=== PATIENT | female | born 1950 | race Caucasian/White ===

== ENCOUNTER 2016-07-06 08:42 | Outpatient (CLI) | payer MEDICARE, OTHER | END 2016-07-06 08:43 | disposition home or self-care (01) | DX: Z12.31 Encounter for screening mammogram for malignant neoplasm of breast (principal) ==

== ENCOUNTER 2016-10-05 10:44 | Outpatient (CLI) | payer MEDICARE, OTHER | END 2016-10-05 10:45 | disposition home or self-care (01) | DX: S92.315A Nondisplaced fracture of first metatarsal bone, left foot, initial encounter for closed fracture (principal); S99.922D Unspecified injury of left foot, subsequent encounter; M94.272 Chondromalacia, left ankle and joints of left foot ==

== ENCOUNTER 2017-07-27 08:58 | Outpatient (CLI) | payer MEDICARE, OTHER ==
--- NOTE | 2017-07-28 15:47 | Mammography Report ---
DIGITAL SCREENING MAMMOGRAM: 07/27/2017 CLINICAL INDICATION: A 66-year-old, for screening. COMPARISON: 06/2016, 06/2015,. 03/2012, 03/2011, 03/2010. TECHNIQUE: Routine CC and MLO projections were obtained of the breasts. FINDINGS: The breasts again demonstrate heterogeneously dense fibroglandular parenchyma bilaterally. Punctate, typically benign calcifications are present. No suspicious masses, clustered microcalcifications, or regions of architectural distortion are identified. IMPRESSION: BENIGN FINDINGS. RECOMMENDATION: ROUTINE ANNUAL SCREENING UNLESS OTHERWISE CLINICALLY INDICATED. BIRADS CATEGORY 2-BENIGN FINDINGS. STANDARD QUALIFYING STATEMENTS: 1. This examination was reviewed with the aid of Computer-Aided Detection (CAD). 2. A negative or benign imaging report should not delay biopsy if clinically suspicious findings are present. Consider surgical consultation if warranted. More than 5% of cancers are not identified by imaging. 3. Dense breasts may obscure an underlying neoplasm. TD: 07/28/2017 15:46
== END 2017-07-27 08:59 | disposition home or self-care (01) ==
LOC: DI 08:58
PROVIDERS: ATTEND Family Medicine
DX: Z12.31 Encounter for screening mammogram for malignant neoplasm of breast (principal)
CPT/HCPCS: 77067

== ENCOUNTER 2017-10-04 09:07 | Outpatient (CLI) | payer MEDICARE, OTHER ==
--- NOTE | 2017-10-05 15:32 | DEXA Report ---
DEXA SCAN: 10/04/2017 CLINICAL INDICATION: Postmenopausal. TECHNIQUE: Dual energy x-ray absorptiometry (DXA) was performed on a [employer] system. Regions measured are the AP spine, femoral neck, and, if needed, forearm. COMPARISON: None. In accordance with the International Society for Clinical Densitometry (ISCD) guidelines, data from previous exams may be reanalyzed using current recommendations and techniques. This is done to allow a more accurate basis for comparison with the current study. FINDINGS Data for the lumbar spine is as follows: REGION BMD (g/cm/cm) T-SCORE Z-SCORE L1 0.918 -1.8 -0.3. L2 1.003 -1.6 -0.2 L3 1.110 -0.8 0.7 L4 1.029 -1.4 0.0 L1-L4 1.018 -1.3 0.1 L2-L4 1.045 -1.3 0.1 NOTE: All evaluable vertebrae are used for classification. The data for the hip is as follows: REGION BMD (g/cm/cm) T-SCORE Z-SCORE Neck 0.741 -2.1 -0.7 TOTAL 0.698 -2.5 -1.3 NOTE: The femoral neck or total proximal femur, whichever is lowest, is used for classification. IMPRESSION WHO CLASSIFICATION BASED ON THE INTERNATIONAL REFERENCE STANDARD IS OSTEOPOROSIS. FRACTURE RISK IS HIGH. RECOMMENDATION: Patients with diagnosis of osteoporosis or osteopenia should have regular bone mineral density assessment. For those eligible for Medicare, routine testing is allowed once every 2 years. Testing frequency can be increased for patients who have rapidly progressing disease or for those who are receiving medical therapy to restore bone mass. COMMENT World Health Organization (WHO) definitions for osteoporosis and osteopenia: NORMAL BMD: T-score at 1.0 or higher, fracture risk is low. OSTEOPENIA BMD: T-score between 1.0 and -2.5, fracture risk is increased. OSTEOPOROSIS BMD: T-score at 2.5 or lower, fracture risk high. National Osteoporosis Foundation recommends: 1. Obtain adequate dietary calcium (at least 1200 mg per day) and vitamin D (400 -800 international units per day). 2. Participate, as appropriate, in regular weightbearing and muscle- strengthening exercise. 3. Avoid tobacco use and reduce alcohol and caffeine intake. 4. For more detailed information see the website at www.NOF.org. TD: 10/04/2017 13:52 [email or web address]
== END 2017-10-04 09:08 | disposition home or self-care (01) ==
LOC: DI 09:07
PROVIDERS: ATTEND Physician Assistant Medical
DX: M81.0 Age-related osteoporosis without current pathological fracture (principal)
CPT/HCPCS: 77080

== ENCOUNTER 2018-06-22 08:00 | Outpatient (CLI) | payer MEDICARE, OTHER ==
[2018-06-22 13:25] LABS: BASOPHILS # (AUTO) 0.1 10^3/uL (0.0-0.1); BASOPHILS % (AUTO) 1.3 %; EOSINOPHILS # (AUTO) 0.1 10^3/uL (0.0-0.7); EOSINOPHILS % (AUTO) 2.5 %; HGB - HEMOGLOBIN 12.9 g/dL (12.0-16.0); LYMPHOCYTES # (AUTO) 1.6 10^3/uL (1.5-3.5); LYMPHOCYTES % (AUTO) 40.5 %; MEAN CORPUSCULAR HEMOGLOBIN 34.5 pg (27.0-31.0); MEAN CORPUSCULAR HGB CONC 33.9 g/dL (32.0-36.0); MEAN CORPUSCULAR VOLUME 101.7 fL (81.0-99.0); MEAN PLATELET VOLUME 7.5 fL (7.9-10.8); MONOCYTES # (AUTO) 0.4 10^3/uL (0.0-1.0); MONOCYTES % (AUTO) 11.3 %; NEUTROPHILS # (AUTO) 1.8 10^3/uL (1.5-6.6); NEUTROPHILS % (AUTO) 44.4 %; PLT - PLATELET COUNT 303 10^3/uL (130-450); RED BLOOD COUNT 3.74 10^6/uL (4.20-5.40)
[2018-06-22 14:25] LABS: ALBUMIN/GLOBULIN RATIO 1.4 (1.0-2.2); ALKALINE PHOSPHATASE 54 IU/L (42-121); ALT ALANINE AMINOTRANSFERASE 18 IU/L (10-60); AST ASPARTATE AMINOTRANSFERASE 25 IU/L (10-42); BILIRUBIN,TOTAL 0.7 mg/dL (0.2-1.0); BUN - BLOOD UREA NITROGEN 11 mg/dL (6-20); CALCIUM 9.9 mg/dL (8.5-10.3); CARBON DIOXIDE - CO2 27 mmol/L (21-32); CHLORIDE 102 mmol/L (101-111); CHOL/HDL RATIO 2.7 (<4.4); CHOLESTEROL 226 mg/dL; CREATININE 0.6 mg/dL (0.4-1.0); GFR - MDRD 100 (>89); GLUCOSE 92 mg/dL (70-100); HDL CHOLESTEROL 85 mg/dL; LDL CHOLESTEROL,CALCULATED 129 mg/dL; LDL/HDL RATIO 1.5 (<4.4); SODIUM 136 mmol/L (135-145); TOTAL PROTEIN 6.8 g/dL (6.7-8.2); VLDL CHOLESTEROL 12 mg/dL
== END 2018-06-22 23:59 | disposition home or self-care (01) ==
LOC: LAB.WCP 08:00
PROVIDERS: ATTEND Family Medicine
DX: I10 Essential (primary) hypertension (principal); E78.5 Hyperlipidemia, unspecified
CPT/HCPCS: 36415; 80053; 80061; 83721; 85025

== ENCOUNTER 2018-10-02 07:42 | Outpatient (CLI) | payer MEDICARE, OTHER ==
--- NOTE | 2018-10-02 10:36 | Mammography Report ---
Reason: SCREENING MAMMO Procedure Date: 10/02/2018 Accession Number: [id number] / [id number] Procedure: JUANPABLO - Screening Mammo w/Matti CPT Code: FULL RESULT: EXAM: Screening Mammo w/Matti DATE: 10/02/2018 8:16 AM CLINICAL HISTORY: Screening examination. TECHNIQUE: (B) - Bilateral CC and MLO views were obtained. COMPARISON: 07/27/2017, 07/06/2016 PARENCHYMAL PATTERN: (A) - The breasts demonstrate scattered fibroglandular densities bilaterally. FINDINGS: There is a mostly well-circumscribed round benign appearing mass in the 12:00 position left breast, middle one third, unchanged dating back to 2017. There are no suspicious masses, calcifications, or areas of distortion. No further workup required. IMPRESSION: Benign findings. BI-RADS category 2. Stable benign-appearing mass left breast as described above. RECOMMENDATION: (ANNUAL) - Recommend routine annual screening mammography. BI-RADS CATEGORY: (2) - Benign Findings. STANDARD QUALIFYING STATEMENTS: 1. This examination was not reviewed with the aid of Computer-Aided Detection (CAD). 2. A negative or benign imaging report should not preclude biopsy if clinically suspicious findings are present. 3. Dense breasts may obscure an underlying neoplasm. 4. This examination was reviewed with the aid of 3D breast imaging (tomosynthesis).
== END 2018-10-02 07:43 | disposition home or self-care (01) ==
LOC: DI 07:42
DX: Z12.31 Encounter for screening mammogram for malignant neoplasm of breast (principal)
CPT/HCPCS: 77063; 77067

== ENCOUNTER 2019-07-02 09:00 | Outpatient (CLI) | payer MEDICARE, OTHER ==
[2019-07-02 12:22] LABS: BASOPHILS % (AUTO) 0.9 %; EOSINOPHILS % (AUTO) 0.7 %; HGB - HEMOGLOBIN 12.2 g/dL (12.0-16.0); LYMPHOCYTES # (AUTO) 1.8 10^3/uL (1.5-3.5); LYMPHOCYTES % (AUTO) 39.9 %; MEAN CORPUSCULAR HGB CONC 32.8 g/dL (32.0-36.0); MEAN CORPUSCULAR VOLUME 100.5 fL (81.0-99.0); MEAN PLATELET VOLUME 8.9 fL (7.9-10.8); MONOCYTES # (AUTO) 0.4 10^3/uL (0.0-1.0); MONOCYTES % (AUTO) 9.6 %; NEUTROPHILS # (AUTO) 2.2 10^3/uL (1.5-6.6); NEUTROPHILS % (AUTO) 48.7 %; PLT - PLATELET COUNT 329 10^3/uL (130-450); RED CELL DISTRIBUTION WIDTH 12.5 % (12.0-15.0); WHITE BLOOD COUNT 4.6 x10^3/uL (4.8-10.8)
[2019-07-02 12:35] LABS: ALBUMIN 4.6 g/dL (3.2-5.5); ALBUMIN/GLOBULIN RATIO 1.4 (1.0-2.2); ALKALINE PHOSPHATASE 57 IU/L (42-121); ALT ALANINE AMINOTRANSFERASE 18 IU/L (10-60); AST ASPARTATE AMINOTRANSFERASE 29 IU/L (10-42); BILIRUBIN,TOTAL 0.7 mg/dL (0.2-1.0); BUN - BLOOD UREA NITROGEN 15 mg/dL (6-20); CALCIUM 10.3 mg/dL (8.5-10.3); CARBON DIOXIDE - CO2 26 mmol/L (21-32); CHLORIDE 100 mmol/L (101-111); CHOL/HDL RATIO 2.2 (<4.4); CHOLESTEROL 254 mg/dL; CREATININE 0.7 mg/dL (0.4-1.0); GFR - MDRD 83 (>89); GLUCOSE 115 mg/dL (70-100); HDL CHOLESTEROL 113 mg/dL; LDL CHOLESTEROL,CALCULATED 124 mg/dL; LDL/HDL RATIO 1.1 (<4.4); SODIUM 136 mmol/L (135-145); TOTAL PROTEIN 7.9 g/dL (6.7-8.2); VLDL CHOLESTEROL 17 mg/dL
== END 2019-07-02 23:59 | disposition home or self-care (01) ==
LOC: LAB.WCP 09:00
PROVIDERS: ATTEND Family Medicine
DX: Z00.00 Encounter for general adult medical examination without abnormal findings (principal); I10 Essential (primary) hypertension; E78.5 Hyperlipidemia, unspecified
CPT/HCPCS: 36415; 80053; 80061; 83721; 84443; 85025

== ENCOUNTER 2020-04-16 08:17 | Outpatient (CLI) | payer MEDICARE, OTHER ==
--- NOTE | 2020-04-23 15:01 | Mammography Report ---
BILATERAL DIGITAL SCREENING MAMMOGRAM 3D/2D: 04/16/2020 CLINICAL: Routine screening. Comparison is made to exams dated: 10/02/2018 mammogram, 07/27/2017 mammogram, 07/06/2016 mammogram, 06/19 mammogram, 06/09/2012 mammogram, and 04/05/2011 mammogram - [facility]. The re are scattered fibroglandular elements in both breasts. No significant masses, calcifications, or other findings are seen in either breast. There has been no significant interval change. IMPRESSION: NEGATIVE There is no mammographic evidence of malignancy. A 1 year screening mammogram is recommended. This exam was interpreted at Station ID: [id number]. NOTE: For mammograms, a report in lay terms will be sent to the patient. Approximately 15% of breast malignancies will not be visualized mammographically. In the management of a palpable breast mass, a negative mammogram must not discourage biopsy of a clinically suspicious lesion. Electronically Signed By: Emmanuel thomson/emy:04/23/2020 12:44:25 ACR BI-RADS Category 1: Negative 3341F PARENCHYMAL PATTERN: (A) - The breast(s) demonstrate(s) scattered fibroglandular densities. BI-RADS CATEGORY: (1) - 1 RECOMMENDATION: (ANNUAL) - Recommend routine annual screening mammography. [id number] 1 year screening LATERALITY: (B)
== END 2020-04-16 08:18 | disposition home or self-care (01) ==
LOC: DI.N 08:17
DX: Z12.31 Encounter for screening mammogram for malignant neoplasm of breast (principal)
CPT/HCPCS: 77063; 77067

== ENCOUNTER 2020-06-25 08:00 | Outpatient (CLI) | payer MEDICARE, OTHER ==
[2020-06-25 11:51] LABS: BASOPHILS # (AUTO) 0.1 10^3/uL (0.0-0.1); BASOPHILS % (AUTO) 1.1 %; EOSINOPHILS # (AUTO) 0.1 10^3/uL (0.0-0.7); EOSINOPHILS % (AUTO) 2.1 %; HGB - HEMOGLOBIN 12.7 g/dL (12.0-16.0); LYMPHOCYTES # (AUTO) 1.9 10^3/uL (1.5-3.5); LYMPHOCYTES % (AUTO) 42.1 %; MEAN CORPUSCULAR HGB CONC 33.4 g/dL (32.0-36.0); MEAN CORPUSCULAR VOLUME 101.9 fL (81.0-99.0); MEAN PLATELET VOLUME 8.8 fL (7.9-10.8); MONOCYTES # (AUTO) 0.5 10^3/uL (0.0-1.0); MONOCYTES % (AUTO) 10.9 %; NEUTROPHILS # (AUTO) 1.9 10^3/uL (1.5-6.6); NEUTROPHILS % (AUTO) 43.6 %; PLT - PLATELET COUNT 327 10^3/uL (130-450); RED BLOOD COUNT 3.73 10^6/uL (4.20-5.40); RED CELL DISTRIBUTION WIDTH 12.3 % (12.0-15.0); WHITE BLOOD COUNT 4.4 x10^3/uL (4.8-10.8)
[2020-06-25 12:26] LABS: ALBUMIN 4.6 g/dL (3.2-5.5); ALBUMIN/GLOBULIN RATIO 1.4 (1.0-2.2); ALKALINE PHOSPHATASE 55 IU/L (42-121); ALT ALANINE AMINOTRANSFERASE 17 IU/L (10-60); AST ASPARTATE AMINOTRANSFERASE 27 IU/L (10-42); BILIRUBIN,TOTAL 0.9 mg/dL (0.2-1.0); BUN - BLOOD UREA NITROGEN 14 mg/dL (6-20); CALCIUM 9.7 mg/dL (8.5-10.3); CARBON DIOXIDE - CO2 25 mmol/L (21-32); CHLORIDE 99 mmol/L (101-111); CHOL/HDL RATIO 3.7 (<4.4); CHOLESTEROL 259 mg/dL; CREATININE 0.6 mg/dL (0.4-1.0); GLUCOSE 98 mg/dL (70-100); HDL CHOLESTEROL 70 mg/dL; TOTAL PROTEIN 7.8 g/dL (6.7-8.2)
== END 2020-06-25 23:59 | disposition home or self-care (01) ==
LOC: LAB.WCP 08:00
PROVIDERS: ATTEND Internal Medicine
DX: I10 Essential (primary) hypertension (principal); E78.5 Hyperlipidemia, unspecified; M89.9 Disorder of bone, unspecified; K62.5 Hemorrhage of anus and rectum
CPT/HCPCS: 36415; 80053; 80061; 83721; 84443; 85025

== ENCOUNTER 2021-04-12 08:35 | Outpatient (CLI) | payer MEDICARE, OTHER ==
[2021-04-12 13:39] LABS: BASOPHILS # (AUTO) 0.1 10^3/uL (0.0-0.1); BASOPHILS % (AUTO) 1.2 %; EOSINOPHILS # (AUTO) 0.1 10^3/uL (0.0-0.7); EOSINOPHILS % (AUTO) 1.9 %; HGB - HEMOGLOBIN 12.1 g/dL (12.0-16.0); LYMPHOCYTES # (AUTO) 1.7 10^3/uL (1.5-3.5); LYMPHOCYTES % (AUTO) 38.9 %; MEAN CORPUSCULAR HEMOGLOBIN 34.2 pg (27.0-31.0); MEAN CORPUSCULAR HGB CONC 32.7 g/dL (32.0-36.0); MEAN CORPUSCULAR VOLUME 104.5 fL (81.0-99.0); MEAN PLATELET VOLUME 9.1 fL (7.9-10.8); MONOCYTES # (AUTO) 0.4 10^3/uL (0.0-1.0); MONOCYTES % (AUTO) 9.2 %; NEUTROPHILS # (AUTO) 2.1 10^3/uL (1.5-6.6); NEUTROPHILS % (AUTO) 48.6 %; PLT - PLATELET COUNT 318 10^3/uL (130-450); RED BLOOD COUNT 3.54 10^6/uL (4.20-5.40); WHITE BLOOD COUNT 4.2 x10^3/uL (4.8-10.8)
[2021-04-12 13:52] LABS: ALBUMIN 4.7 g/dL (3.2-5.5); ALBUMIN/GLOBULIN RATIO 1.6 (1.0-2.2); ALKALINE PHOSPHATASE 50 IU/L (42-121); ALT ALANINE AMINOTRANSFERASE 19 IU/L (10-60); AST ASPARTATE AMINOTRANSFERASE 29 IU/L (10-42); BUN - BLOOD UREA NITROGEN 10 mg/dL (6-20); CALCIUM 10.1 mg/dL (8.5-10.3); CARBON DIOXIDE - CO2 26 mmol/L (21-32); CHLORIDE 97 mmol/L (101-111); CHOL/HDL RATIO 2.2 (<4.4); CHOLESTEROL 249 mg/dL; CREATININE 0.6 mg/dL (0.4-1.0); GFR - MDRD 99 (>89); GLUCOSE 87 mg/dL (70-100); HDL CHOLESTEROL 111 mg/dL; LDL CHOLESTEROL,CALCULATED 129 mg/dL; LDL/HDL RATIO 1.2 (<4.4); POTASSIUM 4.5 mmol/L (3.5-5.0); SODIUM 134 mmol/L (135-145); TOTAL PROTEIN 7.7 g/dL (6.7-8.2); TRIGLYCERIDES 45 mg/dL; VLDL CHOLESTEROL 9 mg/dL
[2021-04-12 14:00] LABS: THYROID STIMULATING HORMONE 0.72 uIU/mL (0.34-5.60)
== END 2021-04-12 23:59 | disposition home or self-care (01) ==
LOC: LAB.WCP 08:35
PROVIDERS: ATTEND Internal Medicine
DX: E78.5 Hyperlipidemia, unspecified (principal); M81.0 Age-related osteoporosis without current pathological fracture; I10 Essential (primary) hypertension
CPT/HCPCS: 36415; 80053; 80061; 83721; 84443; 85025

== ENCOUNTER 2021-05-18 12:47 | Emergency (ER) | payer MEDICARE, OTHER ==
--- NOTE | 2021-05-18 13:27 | ED Physician Documentation ---
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 She was out in the lobby getting ready to pay, and her dog saw another dog that she did not like. The dog subsequently pulled her and she fell onto her left side injuring the hip, ribs. She did hit her head but denies loss of consciousness or any headache at this point. She is not anticoagulated. Hip did not hurt much at first but she developed progressive pain such that at this point it is difficult for her to walk. The ribs do not hurt much. No other injuries. She is mostly worried about the left hip. 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 : Kidney stones HEENT: None Psych: None Musculoskeletal: None Derm: None - Past Surgical History Past Surgical History: Yes General: EGD, Colonoscopy Ortho: Other /MACHINE FITTER: Hysterectomy - Present Medications Home Medications: Ambulatory Orders Medication Instructions Recorded Confirmed Calcium Carbonate/Vitamin D3 1 each PO BID 03/04/13 04/08/16 [Calcium 500+Vit D 400 Tab] Omeprazole [Prilosec] 40 mg PO DAILY 03/04/13 04/08/16 Aspirin [Darwin Chewable] 81 mg PO DAILY 08/19/15 04/08/16 Esomeprazole Magnesium [Nexium] 40 mg PO DAILY 08/19/15 04/08/16 Estradiol [Estrace] 0.01 gm VG QPM 08/19/15 04/08/16 lisinopriL [Lisinopril] 10 mg PO DAILY 08/19/15 04/08/16 Acetaminophen [Tylenol] 650 mg PO Q8HR 04/08/16 04/08/16 Vit C/E/Zinc/Lutein/Zeaxanthin 1 mg PO DAILY 04/08/16 04/08/16 [Ocuvite [facility]] - Allergies Allergies/Adverse Reactions: Allergies Allergy/AdvReac Type Severity Reaction Status Date / Time Tetanus Vaccines and Toxoid AdvReac Hives Verified 05/18/21 12:56 - Social History Does the pt smoke?: No Smoking Status: Former smoker Does the pt drink ETOH?: Yes Does the pt have substance abuse?: No - Immunizations Immunizations are current?: Yes - POLST Patient has POLST: No PD ED PE NORMAL - Vitals Vital signs reviewed: Yes - General General: Alert and oriented X 3, No acute distress - HEENT HEENT: PERRL, EOMI - Neck Neck: Supple, no meningeal sign, No bony TTP - Cardiac Cardiac: RRR - Respiratory Respiratory: No respiratory distress, Clear bilaterally, Other (No specific tenderness of the left ribs) - Abdomen Abdomen: Normal bowel sounds, Soft, Non tender - Back Back: No CVA TTP, No spinal TTP - Derm Derm: Normal color, Warm and dry - Extremities Extremities: Other (Left hip is mildly tender laterally, no shortening or deformity or rotation. She does have some pain with internal or external rotation of the hip.) - Neuro Neuro: Alert and oriented X 3, Normal speech - Psych Psych: Normal mood, Normal affect Results - Vitals Vitals: Vital Signs - 24 hr 05/18/21 05/18/21 12:50 15:08 Temperature 36.6 C 37.3 C Heart Rate 84 84 Respiratory 16 16 Rate Blood Pressure 124/84 H 122/81 H O2 Saturation 98 96 Oxygen O2 Source Room air - Rads (name of study) X-ray of the left hip and MRI of the left hip Radiology: Discussed with rads, EMP read contemporaneously PD MEDICAL DECISION MAKING - ED course ED course: 70-year-old woman after a fall, concern for hip fracture. Initial x-ray negative for hip fracture, with potential pelvic fractures. This was followed by MRI confirming pelvic fractures but no hip fracture. She was able to walk and bear weight here. We administered a walker. She repeatedly declined prescription pain medication. These fractures should be weightbearing as tolerated and we discussed the expected course of illness. Departure - Departure Disposition: 01 Home, Self Care Clinical Impression: Pubic ramus fracture Condition: Good Record reviewed to determine appropriate education?: Yes Instructions: ED Fx Pelvis Follow-Up: Wilman Malave MD [Provider Admit Priv/Credential] - Comments: Tylenol and/or ibuprofen as needed for pain, Tylenol generally safer. Return for new or worsening symptoms. Reasonable to follow-up with your primary care physician in a week for recheck, also not unreasonable follow-up with orthopedics, but this should be a nonoperative issue. And okay to walk and bear weight as tolerated. You can use a walker as needed for comfort. Your MRI today showed: 1. Nondisplaced fractures involving the base of the left superior and inferior pubic rami. 2. Moderate sprain versus partial thickness tear of the left quadratus femoris.
--- NOTE | 2021-05-18 14:29 | XRAY Report ---
PROCEDURE: Hip w/Pelvis 2-3V LT INDICATIONS: hip injury TECHNIQUE: AP pelvis with lateral view(s) of the left hip(s). COMPARISON: 11/08/2017 FINDINGS: There is a subtle linear lucency through the left inferior pubic ramus with cortical disruption/step- off. Findings are suspicious for a minimally displaced fracture. There is also a cortical irregularit y of the left superior pubic ramus medially which may represent an additional fracture. Remaining bon es of the pelvis appear to be intact. IMPRESSION: Suspected left inferior pubic ramus fracture and possible left superior pubic ramus frac ture. CT of the pelvis is recommended for further characterization. Reviewed by: Giovanni Duffy MD on 05/18/2021 1:27 PM [place] Approved by: Giovanni Duffy MD on 05/18/2021 1:27 PM [place] Station ID: [id number]
--- NOTE | 2021-05-18 16:37 | MRI Report ---
PROCEDURE: Hip LT W/O INDICATIONS: L hip injury TECHNIQUE: Noncontrast coronal T1 spin echo and STIR through the bony pelvis. Coronal and axial T2 fast spin ec ho with fat saturation, sagittal T1 spin echo, and oblique axial T2 fast spin echo with fat saturatio n through the hip. COMPARISON: Hip radiographs from earlier same day. FINDINGS: Image quality: Excellent. Bones and joints: There is abnormal increased T2/STIR signal intensity involving the base of the left superior and inferior pubic ramus. Findings are more pronounced involving the superior ramus. Mildly irregular low intensity line extends through the area of edema compatible with the fracture line. Th ere is mild surrounding soft tissue edema. Remainder the visualized osseous structures demonstrate no rmal signal intensity. No evidence for femoral neck fractures on either side. Overall alignment is an atomic. No suspicious osseous lesions. The visualized lower lumbar spine appears normally aligned. N o joint effusion. Soft tissues: There is edema and inflammation involving the left quadratus femoris muscle. It involv es the muscle body, extending into the tendinous insertion site onto the greater trochanter. There is minimal thickening of the tendon of the quadratus femoris. Remainder the visualized muscles demonstr ate normal bulk and internal signal. No free pelvic fluid. Bladder wall thickness is normal. Genit ourinary structures and bowel loops appear normal where visualized. No adenopathy. IMPRESSION: 1. Nondisplaced fractures involving the base of the left superior and inferior pubic rami. 2. Moderate sprain versus partial thickness tear of the left quadratus femoris. Findings were discussed with Dr. Lindsay of the emergency department at 1635 hrs. Reviewed by: Dami Ponce MD on 05/18/2021 4:36 PM PST Approved by: Dami Ponce MD on 05/18/2021 4:36 PM PST Station ID: [id number]
[2021-05-18 16:51] VITALS: BP 170/84
== END 2021-05-18 16:56 | disposition home or self-care (01) ==
LOC: ED 12:47
DX: S32.592A Other specified fracture of left pubis, initial encounter for closed fracture (principal); W01.0XXA Fall on same level from slipping, tripping and stumbling without subsequent striking against object, initial encounter; Y92.59 Other trade areas as the place of occurrence of the external cause; I10 Essential (primary) hypertension; Z79.82 Long term (current) use of aspirin; Z87.891 Personal history of nicotine dependence
CPT/HCPCS: 99282; 99284

== ENCOUNTER 2021-06-04 07:03 | Emergency (ER) | payer MEDICARE, OTHER ==
--- NOTE | 2021-06-04 07:34 | ED Physician Documentation ---
PD HPI Fall - Stated complaint Stated Complaint: L ARM PX, SOA - Chief complaint Chief Complaint: General - History obtained from History obtained from: Patient - History of Present Illness Mechanism of injury: Tripped Fall distance: Standing position Where injury occurred: Home Timing - onset: How many weeks ago (2) Injury(ies) location: Back (left scapular area.), Left Uppper Extremity Quality of pain: Pain, Sharp (pain was just dull aching initially and became sharp and worse the past couple of days without new injury.) Associated symptoms: No: LOC, AMS Worsens with: Movement, Other (deeep breathing and left shoulder movement.) Contributing factors: No: Anticoagulated Similar symptoms before: Diagnosis ( says she had fallen with rib fractures and pneumothorax a few years ago, with rib fractures both sides.) Recently seen: Not recently seen Review of Systems Constitutional: denies: Fever, Chills Nose: denies: Rhinorrhea / runny nose, Congestion Throat: denies: Sore throat Cardiac: denies: Palpitations Respiratory: reports: Dyspnea. 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 : Kidney stones HEENT: None Psych: None Musculoskeletal: None Derm: None - Past Surgical History Past Surgical History: Yes General: EGD, Colonoscopy Ortho: Other /ROCKET PROPELLANT PLANT SUPERVISOR: Hysterectomy - Present Medications Home Medications: Ambulatory Orders Medication Instructions Recorded Confirmed Calcium Carbonate/Vitamin D3 1 each PO BID 03/04/13 04/08/16 [Calcium 500+Vit D 400 Tab] Omeprazole [Prilosec] 40 mg PO DAILY 03/04/13 04/08/16 Aspirin [Darwin Chewable] 81 mg PO DAILY 08/19/15 04/08/16 Esomeprazole Magnesium [Nexium] 40 mg PO DAILY 08/19/15 04/08/16 Estradiol [Estrace] 0.01 gm VG QPM 08/19/15 04/08/16 lisinopriL [Lisinopril] 10 mg PO DAILY 08/19/15 04/08/16 Acetaminophen [Tylenol] 650 mg PO Q8HR 04/08/16 04/08/16 Vit C/E/Zinc/Lutein/Zeaxanthin 1 mg PO DAILY 04/08/16 04/08/16 [Ocuvite [facility]] HYDROcod/ACETAM 5/325 [[place] 5/325] 1 ea PO Q6H PRN #20 tablet 06/04/21 - Allergies Allergies/Adverse Reactions: Allergies Allergy/AdvReac Type Severity Reaction Status Date / Time Tetanus Vaccines and Toxoid AdvReac Hives Verified 06/04/21 07:25 - Social History Does the pt smoke?: No Smoking Status: Never smoker Does the pt drink ETOH?: Yes Does the pt have substance abuse?: No - Immunizations Immunizations are current?: Yes - POLST Patient has POLST: No PD ED PE NORMAL - Vitals Vital signs reviewed: Yes - General General: Alert and oriented X 3, Well developed/nourished, Other (appears moderately uncomfortable with breathing and back movement. ) - HEENT HEENT: Pharynx benign - Neck Neck: Supple, no meningeal sign, No bony TTP, No adenopathy - Cardiac Cardiac: RRR, No murmur - Respiratory Respiratory: Clear bilaterally - Abdomen Abdomen: Soft, Non tender - Back Back: Other (not tender in spine but is tender left scapular area and midaxillary line to palpation without crepitance. Shoulder itself has some tenderness posteriorly. ) - Derm Derm: Normal color, Warm and dry - Extremities Extremities: Normal ROM s pain, No edema, No calf tenderness / cord - Neuro Neuro: Alert and oriented X 3, No motor deficit, No sensory deficit, Normal speech Results - Vitals Vitals: Oxygen O2 Source Room air - Rads (name of study) chest CT Radiology: Prelim report reviewed (multiple rib fractures left side ribs 3-9, minimally displaced. old 10-12 fractures. prior clavicle fx. ), See rad report PD MEDICAL DECISION MAKING - ED course Complexity details: reviewed results (CT showing multiple rib fractures though s ome may be old per patient. But are subacute and patient doing okay. Wants to go home. ), re-evaluated patient (she pefers tylenol and NSIADs, with minimal narcotic use. She feels improved with meds in ER. despite multiple rib fractures, she has gone through 2 weeks already with minimal meds. ), considered differential (concern for ribs and lung injury. Can get CT. ), d/w patient Departure - Departure Disposition: 01 Home, Self Care Clinical Impression: Ribs, multiple fractures Qualifiers: Encounter type: subsequent encounter Fracture type: closed Laterality: left Fracture healing: with routine healing Qualified Code(s): S22.42XD - Multiple fractures of ribs, left side, subsequent encounter for fracture with routine healing Chest pain Qualifiers: Chest pain type: chest pain on breathing Qualified Code(s): R07.1 - Chest pain on breathing Condition: Stable Instructions: ED Fx Rib Follow-Up: Juvenal Godwin MD [Primary Care Provider] - Prescriptions: HYDROcod/ACETAM 5/325 [[place] 5/325] 1 ea PO Q6H PRN #20 tablet PRN Reason: Pain Comments: Your CT scan shows normal lungs without any apparent injury, fluid, pneumonia. You do have several rib fractures in the area you are hurting that seem to be in place and starting to heal with some early callus. I would suggest using the Tylenol 500 mg 4 times a day to spread out the effect. Also ibuprofen 400 mg 2-3 times a day regularly with food. To that add hydrocodone pain medicine every 4-6 hours if needed for worse pain. You seem to do well with a little bit of pain medicine here in the ER combined with the anti-inflammatory so hopefully that will work for you at home as well. Follow-up with your primary care in about a week, call for an appointment. Return to the ER if worsening pain, fevers, coughing, other concerns. I transmitted your prescription to [facility] pharmacy in [place]. I am prescribing a short course of narcotic pain medication for you. These are potentially dangerous and addictive medications that should be used carefully. These medications may constipate you. Take an ralr-sxq-subuubd stool softener such as docusate twice daily with plenty of water while taking these m edications. If you go 24 hours without a bowel movement, take urwq-bqt-atkemje MiraLAX, per package instructions. Do not drink or drive while taking these medications. If you received narcotic or sedating medications while in the emergency department do not drive for 24 hours. Store this medication in a safe, secure place and out of reach of children. It is a violation of federal law to give or sell this medication to another person or to use in a manner other than prescribed. The ED will not refill narcotic prescriptions, including prescriptions lost or stolen. You can dispose of unwanted medications at the [facility] office or at several pharmacies such as [facility]. Discharge Date/Time: 06/04/21 10:22
[2021-06-04] MEDS ORDERED: KETOROLAC 30 MG/ML VIAL IVP STA (07:54)
[2021-06-04] MEDS ORDERED: HYDROmorphone 0.5 MG/0.5 ML SYRINGE IVP STA (08:00)
--- NOTE | 2021-06-04 09:31 | CT Report ---
PROCEDURE: CHEST WO INDICATIONS: fall with left axillary ribs/scapular pain TECHNIQUE: Noncontrast 1mm axial images were acquired from the pulmonary apices to the posterior costophrenic an gles. Axial 5 mm soft tissue kernel reconstructions were performed as well as 8 mm axial MIP and cor onal and sagittal 5 mm reformations. For radiation dose reduction, the following was used: automate d exposure control, adjustment of mA and/or kV according to patient size. COMPARISON: August 19, 2015 FINDINGS: Thyroid: Multinodular change. Vasculature: Normal size and contour. Mild aortic dilatation, measuring up to 3.9 cm. Heart: No cardiomegaly or pericardial effusion. Mediastinum/deanne: No pathologically enlarged lymph nodes by size criteria. Lung/pleura: No consolidation, pleural effusion, or pneumothorax. Biapical pleural thickening/scarrin g. Left basal atelectasis/scarring. Tracheobronchial tree: Patent. Upper abdomen: No acute abnormality. 1.7 cm hypoattenuating lesion in the quadrate lobe, likely repre senting a cyst. Bones: Remote fracture deformity of the left clavicle, left first rib, and sternum. Acute to subacute fractures of the left third through ninth ribs, some of which are minimally displac ed. Remote fracture deformity of the left 10th through 12th. Mild height loss with superior endplate irregularity at T11, which may be secondary to a Schmorl's no de. Chest wall: No significant abnormality. IMPRESSION: 1.Acute to subacute fractures of the left third through ninth ribs as detailed above. Reviewed by: Reyes Reynolds MD on 06/04/2021 9:30 AM [facility] Approved by: Reyes Reynolds MD on 06/04/2021 9:30 AM PST Station ID: [id number]
[2021-06-04 10:23] VITALS: BP 118/72
== END 2021-06-04 10:22 | disposition home or self-care (01) ==
LOC: ED 07:03
DX: S22.42XA Multiple fractures of ribs, left side, initial encounter for closed fracture (principal); X58.XXXA Exposure to other specified factors, initial encounter; R07.1 Chest pain on breathing; I10 Essential (primary) hypertension
CPT/HCPCS: 71250; 96374; 99284; J1170

== ENCOUNTER 2021-07-09 08:17 | Outpatient (CLI) | payer MEDICARE, OTHER ==
--- NOTE | 2021-07-09 11:02 | DEXA Report ---
PROCEDURE: Dexa Spine and/or Hip INDICATIONS: OSTEOPENIA, OSTEOPOROSIS TECHNIQUE: Dual energy x-ray absorptiometry (DXA) was performed on a [employer] System. Regions measur ed are the AP Spine, femoral neck, and if needed forearm. COMPARISON: October 04, 2017. FINDINGS: Lumbar Spine: Bone Mineral Density 0.967 g/cm/cm,T score -1.8, osteopenia Left Femoral Neck: Bone Mineral Density 0.710 g/cm/cm, T score -2.4, osteopenia Total: Bone Mineral Density 0.646 g/cm/cm, T score -2.9, osteoporosis (T score greater or equal to -1.0: NORMAL) (T score from -1.1 to -2.4: OSTEOPENIA) (T score less than or equal to -2.5 to: OSTEOPOROSIS) Impression: Bone mineral density as detailed above. Patients with diagnosis of osteoporosis or osteopenia should have regular bone mineral density assess ment. For those eligible for Medicare, routine testing is allowed once every 2 years. Testing frequ ency can be increased for patients who have rapidly progressing disease or for those who are receivin g medical therapy to restore bone mass. Reviewed by: Reyes Reynolds MD on 07/09/2021 11:00 AM PST Approved by: Reyes Reynolds MD on 07/09/2021 11:00 AM PST Station ID: [id number]
== END 2021-07-09 08:18 | disposition home or self-care (01) ==
LOC: DI 08:17
PROVIDERS: ATTEND Internal Medicine
DX: M81.0 Age-related osteoporosis without current pathological fracture (principal)

== ENCOUNTER 2021-07-14 08:24 | Outpatient (CLI) | payer MEDICARE, OTHER ==
--- NOTE | 2021-07-15 06:32 | Mammography Report ---
BILATERAL DIGITAL SCREENING MAMMOGRAM 3D/2D: 07/14/2021 CLINICAL: Routine screening. Comparison is made to exams dated: 04/16/2020 mammogram, 10/02/2018 mammogram, 07/27/2017 mammogram, mammogram, 07/06/2015 mammogram, and 06/09/2012 mammogram - [facility]. The re are scattered fibroglandular elements in both breasts. There are benign vascular calcifications in both breasts. No significant masses, calcifications, or other findings are seen in either breast. There has been no significant interval change. IMPRESSION: BENIGN There is no mammographic evidence of malignancy. A 1 year screening mammogram is recommended. This exam was interpreted at Station ID: [id number]. NOTE: For mammograms, a report in lay terms will be sent to the patient. Approximately 15% of breast malignancies will not be visualized mammographically. In the management of a palpable breast mass, a negative mammogram must not discourage biopsy of a clinically suspicious lesion. Electronically Signed By: Eleazar Hewitt M.D. [email or web address]/emy:07/14/2021 09:52:35 ACR BI-RADS Category 2: Benign Finding(s) 3342F PARENCHYMAL PATTERN: (A) - The breast(s) demonstrate(s) scattered fibroglandular densities. BI-RADS CATEGORY: (2) - 2 RECOMMENDATION: (ANNUAL) - Recommend routine annual screening mammography. [id number] 1 year screening LATERALITY: (B)
== END 2021-07-14 08:25 | disposition home or self-care (01) ==
LOC: DI.N 08:24
DX: Z12.31 Encounter for screening mammogram for malignant neoplasm of breast (principal)

== ENCOUNTER 2021-08-30 08:31 | Outpatient (CLI) | payer MEDICARE, OTHER ==
[2021-08-30 13:31] LABS: BASOPHILS # (AUTO) 0.1 10^3/uL (0.0-0.1); BASOPHILS % (AUTO) 1.5 %; EOSINOPHILS # (AUTO) 0.1 10^3/uL (0.0-0.7); HCT - HEMATOCRIT 35.6 % (37.0-47.0); HGB - HEMOGLOBIN 11.9 g/dL (12.0-16.0); LYMPHOCYTES # (AUTO) 1.5 10^3/uL (1.5-3.5); LYMPHOCYTES % (AUTO) 37.7 %; MEAN CORPUSCULAR HGB CONC 33.4 g/dL (32.0-36.0); MEAN CORPUSCULAR VOLUME 101.7 fL (81.0-99.0); MEAN PLATELET VOLUME 8.9 fL (7.9-10.8); MONOCYTES # (AUTO) 0.5 10^3/uL (0.0-1.0); MONOCYTES % (AUTO) 11.7 %; NEUTROPHILS # (AUTO) 1.9 10^3/uL (1.5-6.6); NEUTROPHILS % (AUTO) 47.1 %; PLT - PLATELET COUNT 325 10^3/uL (130-450); RED CELL DISTRIBUTION WIDTH 12.2 % (12.0-15.0); WHITE BLOOD COUNT 3.9 x10^3/uL (4.8-10.8)
[2021-08-30 13:42] LABS: THYROID STIMULATING HORMONE 0.54 uIU/mL (0.34-5.60)
[2021-08-30 14:50] LABS: ALBUMIN 4.5 g/dL (3.2-5.5); ALBUMIN/GLOBULIN RATIO 1.6 (1.0-2.2); ALKALINE PHOSPHATASE 60 IU/L (42-121); ALT ALANINE AMINOTRANSFERASE 15 IU/L (10-60); AST ASPARTATE AMINOTRANSFERASE 24 IU/L (10-42); BILIRUBIN,TOTAL 0.7 mg/dL (0.2-1.0); BUN - BLOOD UREA NITROGEN 11 mg/dL (6-20); CHOL/HDL RATIO 2.1 (<4.4); CHOLESTEROL 210 mg/dL; CREATININE 0.7 mg/dL (0.4-1.0); GFR - MDRD 83 (>89); HDL CHOLESTEROL 102 mg/dL; LDL CHOLESTEROL,CALCULATED 93 mg/dL; LDL/HDL RATIO 0.9 (<4.4); TOTAL PROTEIN 7.3 g/dL (6.7-8.2); TRIGLYCERIDES 74 mg/dL; VLDL CHOLESTEROL 15 mg/dL
[2021-08-30 14:51] LABS: CALCIUM 10.1 mg/dL (8.5-10.3); CARBON DIOXIDE - CO2 26 mmol/L (21-32); CHLORIDE 96 mmol/L (101-111); GLUCOSE 93 mg/dL (70-100); POTASSIUM 4.4 mmol/L (3.5-5.0); SODIUM 132 mmol/L (135-145)
== END 2021-08-30 08:32 | disposition home or self-care (01) ==
LOC: LAB.N 08:31
PROVIDERS: ATTEND Internal Medicine
DX: I10 Essential (primary) hypertension (principal); M81.0 Age-related osteoporosis without current pathological fracture
CPT/HCPCS: 36415; 80053; 80061; 83721; 84443; 85025

== ENCOUNTER 2021-09-17 08:44 | Outpatient (CLI) | payer MEDICARE, OTHER ==
[2021-09-17 12:47] LABS: % IRON SATURATION 36 % (20-50); IRON 111 ug/dL (28-170); TOTAL IRON BINDING CAPACITY 308 ug/dL (250-450); TRANSFERRIN 220 mg/dL (192-382)
== END 2021-09-17 08:45 | disposition home or self-care (01) ==
LOC: LAB.N 08:44
PROVIDERS: ATTEND Internal Medicine
DX: D64.9 Anemia, unspecified (principal)
CPT/HCPCS: 36415; 82728; 83540; 84466

== ENCOUNTER 2022-02-17 09:19 | Outpatient (CLI) | payer MEDICARE, OTHER ==
[2022-02-17 11:53] LABS: BASOPHILS # (AUTO) 0.1 10^3/uL (0.0-0.1); BASOPHILS % (AUTO) 1.5 %; EOSINOPHILS # (AUTO) 0.2 10^3/uL (0.0-0.7); EOSINOPHILS % (AUTO) 4.8 %; HCT - HEMATOCRIT 35.3 % (37.0-47.0); HGB - HEMOGLOBIN 12.3 g/dL (12.0-16.0); LYMPHOCYTES # (AUTO) 1.4 10^3/uL (1.5-3.5); LYMPHOCYTES % (AUTO) 34.4 %; MEAN CORPUSCULAR HEMOGLOBIN 34.5 pg (27.0-31.0); MEAN CORPUSCULAR HGB CONC 34.8 g/dL (32.0-36.0); MEAN CORPUSCULAR VOLUME 98.9 fL (81.0-99.0); MEAN PLATELET VOLUME 8.9 fL (7.9-10.8); MONOCYTES # (AUTO) 0.5 10^3/uL (0.0-1.0); MONOCYTES % (AUTO) 10.9 %; NEUTROPHILS % (AUTO) 48.4 %; PLT - PLATELET COUNT 321 10^3/uL (130-450); RED BLOOD COUNT 3.57 10^6/uL (4.20-5.40); RED CELL DISTRIBUTION WIDTH 12.3 % (12.0-15.0); WHITE BLOOD COUNT 4.1 x10^3/uL (4.8-10.8)
[2022-02-17 12:23] LABS: % IRON SATURATION 51 % (20-50); ALBUMIN 4.5 g/dL (3.2-5.5); ALBUMIN/GLOBULIN RATIO 1.6 (1.0-2.2); ALKALINE PHOSPHATASE 60 IU/L (42-121); ALT ALANINE AMINOTRANSFERASE 17 IU/L (10-60); AST ASPARTATE AMINOTRANSFERASE 27 IU/L (10-42); BUN - BLOOD UREA NITROGEN 9 mg/dL (6-20); CALCIUM 10.2 mg/dL (8.5-10.3); CARBON DIOXIDE - CO2 26 mmol/L (21-32); CHLORIDE 94 mmol/L (101-111); CHOL/HDL RATIO 2.2 (<4.4); CHOLESTEROL 236 mg/dL; CREATININE 0.6 mg/dL (0.4-1.0); GFR - MDRD 99 (>89); GLUCOSE 99 mg/dL (70-100); HDL CHOLESTEROL 106 mg/dL; IRON 155 ug/dL (28-170); POTASSIUM 4.8 mmol/L (3.5-5.0); SODIUM 130 mmol/L (135-145); TOTAL IRON BINDING CAPACITY 301 ug/dL (250-450); TOTAL PROTEIN 7.4 g/dL (6.7-8.2); TRANSFERRIN 215 mg/dL (192-382); TRIGLYCERIDES 36 mg/dL
[2022-02-17 12:28] LABS: FERRITIN 146.1 ng/mL (11.0-306.8)
== END 2022-02-17 09:20 | disposition home or self-care (01) ==
LOC: LAB.N 09:19
PROVIDERS: ATTEND Internal Medicine
DX: I10 Essential (primary) hypertension (principal); E78.5 Hyperlipidemia, unspecified; D64.9 Anemia, unspecified
CPT/HCPCS: 36415; 80053; 80061; 82607; 82728; 83540; 83721; 84466; 85025

== ENCOUNTER 2022-08-10 12:52 | Outpatient (CLI) | payer MEDICARE, OTHER ==
--- NOTE | 2022-08-10 15:38 | XRAY Report ---
PROCEDURE: Lumbar Spine 2 View INDICATIONS: LOW BACK PAIN, UNSPECIFIED TECHNIQUE: 3 views of the lumbar spine were acquired. COMPARISON: None. FINDINGS: Bones: 5 [id number] vertebrae are present. Anterior and central height loss of approximately 2 5% of the L3 vertebra. Facet arthrosis in the lower lumbar spine resulting in grade 1 anterolisthesis of L4-5. L1-2 has disc space narrowing consistent with degenerative disc disease. No vertebral body compression fractures. No suspicious bony lesions. Soft tissues: Overlying bowel gas pattern is normal. No suspicious soft tissue calcifications. IMPRESSION: 1. Multilevel degenerative changes and facet arthrosis with grade 1 anterolisthesis of L4-5. 2. 25% anterior height loss of L3 consistent with compression fracture of indeterminate age. Reviewed by: John Hassan on 08/10/2022 3:37 PM PST Approved by: John Hassan on 08/10/2022 3:37 PM PST Station ID: [id number]
== END 2022-08-10 12:53 | disposition home or self-care (01) ==
LOC: DI 12:52
PROVIDERS: ATTEND Nurse Practitioner
DX: M47.816 Spondylosis without myelopathy or radiculopathy, lumbar region (principal); M43.16 Spondylolisthesis, lumbar region

== ENCOUNTER 2022-08-11 08:21 | Outpatient (CLI) | payer MEDICARE, OTHER ==
--- NOTE | 2022-08-12 10:24 | Mammography Report ---
BILATERAL DIGITAL SCREENING MAMMOGRAM 3D/2D: 08/11/2022 CLINICAL: Routine screening. Comparison is made to exams dated: 07/14/2021 mammogram, 04/16/2020 mammogram, 10/02/2018 mammogram, mammogram, 07/06/2016 mammogram, and 07/06/2015 mammogram - [facility]. There are scattered areas of fibroglandular density in both breasts (category b / 25%-50% glandular t issue). There are benign vascular calcifications in both breasts. No significant masses, calcifications, or other findings are seen in either breast. There has been no significant interval change. IMPRESSION: BENIGN There is no mammographic evidence of malignancy. A 1 year screening mammogram is recommended. Based on the Tyrer Cuzick model (a risk assessment model) the patients lifetime risk is 3.3% and her 10 year risk is 2.2%. According to the ACR, ACS, and NCCN guidelines, an annual breast MRI exam alpesh g with mammogram is recommended if the patients lifetime risk is 20% or greater. This exam was interpreted at Station ID: [id number]. NOTE: For mammograms, a report in lay terms will be sent to the patient. Approximately 15% of breast malignancies will not be visualized mammographically. In the management of a palpable breast mass, a negative mammogram must not discourage biopsy of a clinically suspicious lesion. Electronically Signed By: Clemente river/emy:08/11/2022 09:23:42 letter sent: No_Letter ACR BI-RADS Category 2: Benign Finding(s) 3342F PARENCHYMAL PATTERN: (A) - The breast(s) demonstrate(s) scattered fibroglandular densities. BI-RADS CATEGORY: (2) - 2 RECOMMENDATION: (ANNUAL) - Recommend routine annual screening mammography. [id number] 1 year screening LATERALITY: (B)
== END 2022-08-11 08:22 | disposition home or self-care (01) ==
LOC: DI.N 08:21
DX: Z12.31 Encounter for screening mammogram for malignant neoplasm of breast (principal)

== ENCOUNTER 2022-09-01 09:30 | Outpatient (CLI) | payer MEDICARE, OTHER | END 2022-09-01 09:45 | disposition home or self-care (01) | LOC: LAB.N 09:30 | PROVIDERS: ATTEND Physician Assistant Medical | DX: N30.00 Acute cystitis without hematuria (principal) | CPT/HCPCS: 87086; 87181 ==

== ENCOUNTER 2023-03-30 08:00 | Outpatient (CLI) | payer MEDICARE, OTHER ==
[2023-03-30 11:34] LABS: BASOPHILS # (AUTO) 0.1 10^3/uL (0.0-0.1); BASOPHILS % (AUTO) 1.5 %; EOSINOPHILS # (AUTO) 0.1 10^3/uL (0.0-0.7); EOSINOPHILS % (AUTO) 3.3 %; HCT - HEMATOCRIT 36.3 % (37.0-47.0); HGB - HEMOGLOBIN 11.8 g/dL (12.0-16.0); LYMPHOCYTES # (AUTO) 1.6 10^3/uL (1.5-3.5); LYMPHOCYTES % (AUTO) 40.4 %; MEAN CORPUSCULAR HEMOGLOBIN 33.1 pg (27.0-31.0); MEAN CORPUSCULAR HGB CONC 32.5 g/dL (32.0-36.0); MEAN PLATELET VOLUME 8.8 fL (7.9-10.8); MONOCYTES # (AUTO) 0.5 10^3/uL (0.0-1.0); MONOCYTES % (AUTO) 11.8 %; NEUTROPHILS # (AUTO) 1.7 10^3/uL (1.5-6.6); NEUTROPHILS % (AUTO) 42.5 %; PLT - PLATELET COUNT 380 10^3/uL (130-450); RED BLOOD COUNT 3.56 10^6/uL (4.20-5.40); RED CELL DISTRIBUTION WIDTH 12.4 % (12.0-15.0); WHITE BLOOD COUNT 3.9 x10^3/uL (4.8-10.8)
[2023-03-30 12:02] LABS: ALBUMIN 4.5 g/dL (3.2-5.5); ALBUMIN/GLOBULIN RATIO 1.6 (1.0-2.2); ALKALINE PHOSPHATASE 86 IU/L (42-121); ALT ALANINE AMINOTRANSFERASE 13 IU/L (10-60); AST ASPARTATE AMINOTRANSFERASE 21 IU/L (10-42); BILIRUBIN,TOTAL 0.6 mg/dL (0.2-1.0); BUN - BLOOD UREA NITROGEN 9 mg/dL (6-20); CALCIUM 10.4 mg/dL (8.5-10.3); CARBON DIOXIDE - CO2 27 mmol/L (21-32); CHLORIDE 98 mmol/L (101-111); CHOL/HDL RATIO 2.2 (<4.4); CHOLESTEROL 224 mg/dL; CREATININE 0.5 mg/dL (0.6-1.3); GFR - MDRD 121 (>89); GLUCOSE 87 mg/dL (74-104); HDL CHOLESTEROL 103 mg/dL; LDL CHOLESTEROL,CALCULATED 112 mg/dL; LDL/HDL RATIO 1.1 (<4.4); POTASSIUM 4.8 mmol/L (3.5-4.5); SODIUM 132 mmol/L (135-145); TOTAL PROTEIN 7.4 g/dL (6.4-8.9); TRIGLYCERIDES 46 mg/dL (48-352); VLDL CHOLESTEROL 9 mg/dL
== END 2023-03-30 23:58 | disposition home or self-care (01) ==
LOC: LAB.N 08:00
PROVIDERS: ATTEND Internal Medicine
DX: I10 Essential (primary) hypertension (principal); E78.5 Hyperlipidemia, unspecified
CPT/HCPCS: 36415; 80053; 80061; 83721; 85025

== ENCOUNTER 2023-09-28 09:23 | Outpatient (CLI) | payer MEDICARE, OTHER ==
--- NOTE | 2023-09-29 08:38 | Mammography Report ---
BILATERAL DIGITAL SCREENING MAMMOGRAM 3D/2D: 09/28/2023 CLINICAL: Routine screening. Comparison is made to exams dated: 08/11/2022 mammogram, 07/14/2021 mammogram, 04/16/2020 mammogram, mammogram, 07/27/2017 mammogram, and 07/06/2016 mammogram - [facility]. There are scattered areas of fibroglandular density in both breasts (category b / 25%-50% glandular t issue). There are benign vascular calcifications in both breasts. There is a developing oval equal density asymmetry with a microlobulated margin in the right breast m iddle depth central to the nipple seen on the craniocaudal view only. This is more prominent and inc reased in size. No other significant masses, calcifications, or other findings are seen in either breast. There has been no significant interval change. IMPRESSION: INCOMPLETE: NEEDS ADDITIONAL IMAGING EVALUATION The developing oval equal density asymmetry in the right breast is indeterminate. Additional views w ith possible ultrasound are recommended. Based on the Tyrer Cuzick model (a risk assessment model) the patient's lifetime risk is 2.9% and her 10 year risk is 2.4%. According to the ACR, ACS, and NCCN guidelines, an annual breast MRI exam alpesh g with mammogram is recommended if the patient's lifetime risk is 20% or greater. This exam was interpreted at Station ID: [id number]. NOTE: For mammograms, a report in lay terms will be sent to the patient. Approximately 15% of breast malignancies will not be visualized mammographically. In the management of a palpable breast mass, a negative mammogram must not discourage biopsy of a clinically suspicious lesion. Electronically Signed By: Leticia beltran/emy:09/28/2023 12:56:58 letter sent: No_Letter ACR BI-RADS Category 0: Incomplete 3340F PARENCHYMAL PATTERN: (A) - The breast(s) demonstrate(s) scattered fibroglandular densities. BI-RADS CATEGORY: (0) - 0 Mammo and [place] [id number] Immediate follow-up LATERALITY: (B)
== END 2023-09-28 09:24 | disposition home or self-care (01) ==
LOC: DI.N 09:23
DX: Z12.31 Encounter for screening mammogram for malignant neoplasm of breast (principal); R92.323 Mammographic fibroglandular density, bilateral breasts; R92.1 Mammographic calcification found on diagnostic imaging of breast; R92.8 Other abnormal and inconclusive findings on diagnostic imaging of breast

== ENCOUNTER 2023-10-26 12:35 | Outpatient (CLI) | payer MEDICARE, OTHER ==
--- NOTE | 2023-10-27 09:54 | Mammography Report ---
UNILATERAL RIGHT DIGITAL DIAGNOSTIC MAMMOGRAM 3D/2D WITH SPOT COMPRESSION: 10/26/2023 CLINICAL: Patient returns today to evaluate an asymmetry in the right breast. Comparison is made to exams dated: 09/28/2023 mammogram, 08/11/2022 mammogram, and 07/14/2021 mammogram - [facility]. There are scattered areas of fibroglandular density in the right breast (category b / 25%-50% glandul ar tissue). There are benign vascular calcifications in the right breast. The asymmetry in the right breast middle depth lateral region seen on the craniocaudal view only is l ess prominent on additional views. No other significant masses or calcifications are seen in the breast. IMPRESSION: INCOMPLETE: NEEDS ADDITIONAL IMAGING EVALUATION The developing oval equal density asymmetry in the right breast may respresent superimposed fibroglan dular tissue and is indeterminate. A targeted ultrasound of the right breast is recommended and will be performed immediately following this exam. Based on the Tyrer Cuzick model (a risk assessment model) the patient's lifetime risk is 2.9% and her 10 year risk is 2.4%. According to the ACR, ACS, and NCCN guidelines, an annual breast MRI exam alpesh g with mammogram is recommended if the patient's lifetime risk is 20% or greater. This exam was interpreted at Station ID: [id number]. NOTE: For mammograms, a report in lay terms will be sent to the patient. Approximately 15% of breast malignancies will not be visualized mammographically. In the management of a palpable breast mass, a negative mammogram must not discourage biopsy of a clinically suspicious lesion. Electronically Signed By: Mary pierre/:10/26/2023 13:22:00 Entry: lisha - 10/27/2023 08:46:49 ACR BI-RADS Category 0: Incomplete 3340F PARENCHYMAL PATTERN: (A) - The breast(s) demonstrate(s) scattered fibroglandular densities. BI-RADS CATEGORY: (0) - 0 Ultrasound [id number] Immediate follow-up LATERALITY: (B)
--- NOTE | 2023-10-27 09:54 | Ultrasound Report ---
LIMITED ULTRASOUND OF RIGHT BREAST: 10/26/2023 CLINICAL: Patient returns today to evaluate a focal asymmetry in the right breast. Comparison is made to exams dated: 10/26/2023 mammogram, 09/28/2023 mammogram, 08/11/2022 mammogram, 06/20 mammogram, 04/16/2020 mammogram, and 07/27/2017 mammogram - [facility]. Color flow and real-time ultrasound of the right breast 12 o'clock, and retroareolar regions were per formed on the areas of interest. Winkler scale images of the real-time examination were reviewed. IMPRESSION: NEGATIVE There is no sonographic evidence of malignancy. There is no sonographic abnormality seen in the right breast to correspond with the mammography findi ng which is most consistent with superimposed fibroglandular tissue. A 1 year screening mammogram is recommended. This exam was interpreted at Station ID: [id number]. Electronically Signed By: Mary Hurley M.D. lk/:10/26/2023 13:22:58 letter sent: No_Letter Ultrasound BI-RADS: 1 Negative BI-RADS CATEGORY: (1) - 1 RECOMMENDATION: (ANNUAL) - Recommend routine annual screening mammography. [id number] 1 year screening LATERALITY: (B)
== END 2023-10-26 12:36 | disposition home or self-care (01) ==
LOC: DI 12:35
PROVIDERS: ATTEND Internal Medicine
DX: R92.321 Mammographic fibroglandular density, right breast (principal)

== ENCOUNTER 2023-11-21 09:44 | Outpatient (CLI) | payer MEDICARE, OTHER ==
--- NOTE | 2023-11-21 11:16 | DEXA Report ---
PROCEDURE: Dexa Spine and/or Hip INDICATIONS: OSTEOPOROSIS TECHNIQUE: Dual energy x-ray absorptiometry (DXA) was performed on a [employer] System. Regions measur ed are the AP Spine, femoral neck, and if needed forearm. COMPARISON: 07/09/2021 FINDINGS: Lumbar Spine: Bone Mineral Density: 0.95 g/cm/cm,T score: -1.6. Since the most recent prior study, there has been a statistically significant increase in bone mineral density by 1.9 percent. Left Femoral Neck: Bone Mineral Density: 0.647 g/cm/cm, T score: -2.8. Left Hip: Bone Mineral Density: 0.596 g/cm/cm,T score: -2.3. Since the most recent prior study, there has been a statistically significant decrease in bone mineral density by 7.7 percent. (T score greater or equal to -1.0: NORMAL) (T score from -1.1 to -2.4: OSTEOPENIA) (T score less than or equal to -2.5 to: OSTEOPOROSIS) Impression: By WHO criteria, this patient has osteoporosis. Interval statistical increase in bone mineral density of the lumbar spine. Interval statistical decre ase in bone mineral density of the hip. Patients with diagnosis of osteoporosis or osteopenia should have regular bone mineral density assess ment. For those eligible for Medicare, routine testing is allowed once every 2 years. Testing frequ ency can be increased for patients who have rapidly progressing disease or for those who are receivin g medical therapy to restore bone mass. Reviewed by: Lux Small MD on 11/21/2023 11:15 AM PDT Approved by: Lux Small MD on 11/21/2023 11:15 AM PDT Station ID: [id number]
== END 2023-11-21 09:45 | disposition home or self-care (01) ==
LOC: DI 09:44
PROVIDERS: ATTEND Internal Medicine
DX: M81.0 Age-related osteoporosis without current pathological fracture (principal)

== ENCOUNTER 2023-12-19 10:11 | Emergency (ER) | payer MEDICARE, OTHER ==
[2023-12-19] MEDS: LIDOCAINE 1% 2 ML VIAL SUBQ STA (10:59)
--- NOTE | 2023-12-19 11:39 | ED Physician Documentation ---
History of Present Illness - Stated complaint Stated Complaint: LOWER LIP LAC, GLF - Chief complaint Chief Complaint: Trauma Hd/Nk - History obtained from History obtained from: Patient, Family () - History of Present Illness Timing: Today - Additonal information Additional information: Norma Esteves is a 73-year-old female who went to the dentist this morning to get some worked on her teeth when she returned home she got out of her car she tripped and fell against a a rack for a truck that was sitting at the side of the vehicle. She split her lip on this and abraded her knees. She denies any significant pain associated with this and did not get knocked out and she does not have loosening of her teeth, neck pain or nausea. She is not on a blood th inner. Review of Systems Constitutional: denies: Fever Eyes: denies: Decreased vision Nose: denies: Congestion Throat: denies: Sore throat Respiratory: denies: Cough GI: denies: Nausea, Vomiting PD PAST MEDICAL HISTORY - Past Medical History Cardiovascular: Hypertension, Valve disorder Respiratory: None Neuro: None Endocrine/Autoimmune: None GI: GERD TRUCK HOP: None : Kidney stones HEENT: None Psych: None Musculoskeletal: None Derm: None - Past Surgical History Past Surgical History: Yes General: EGD, Colonoscopy Ortho: Other /TRUCK HOP: Hysterectomy - Present Medications Home Medications: Ambulatory Orders Medication Instructions Recorded Confirmed Calcium Carbonate/Vitamin D3 1 each PO BID 03/04/13 12/19/23 [Calcium 500+Vit D 400 Tab] Omeprazole [Prilosec] 40 mg PO DAILY 03/04/13 12/19/23 Aspirin [Darwin Chewable] 81 mg PO DAILY 08/19/15 12/19/23 Esomeprazole Magnesium [Nexium] 40 mg PO DAILY 08/19/15 12/19/23 Estradiol [Estrace] 0.01 gm VG QPM 08/19/15 12/19/23 lisinopriL [Lisinopril] 10 mg PO DAILY 08/19/15 12/19/23 Acetaminophen [Tylenol] 650 mg PO Q8HR 04/08/16 12/19/23 Vit C/E/Zinc/Lutein/Zeaxanthin 1 mg PO DAILY 04/08/16 12/19/23 [Ocuvite Eye Health Gummies] HYDROcod/ACETAM 5/325 [Hays 5/325] 1 ea PO Q6H PRN #20 tablet 06/04/21 12/19/23 - Allergies Allergies/Adverse Reactions: Allergies Allergy/AdvReac Type Severity Reaction Status Date / Time Tetanus Vaccines and Toxoid AdvReac Hives Verified 12/19/23 10:29 - Social History Does the pt smoke?: No Smoking Status: Never smoker Does the pt drink ETOH?: Yes Does the pt have substance abuse?: No - Immunizations Immunizations are current?: Yes - POLST Patient has POLST: No PD ED PE NORMAL - Vitals Vital signs reviewed: Yes (hpyertensive ) - General General: Alert and oriented X 3, No acute distress, Well developed/nourished - HEENT HEENT: PERRL, EOMI, Other (2cm laceration to the lower lip through the vermillian border. No loose teeth and no missing tissue. ) - Neck Neck: Supple, no meningeal sign, No bony TTP - Respiratory Respiratory: No respiratory distress - Derm Derm: Normal color, Warm and dry, No rash - Extremities Extremities: No deformity, No edema, Other (There is an abrasion to the patella of both knees worse on the right than the left examination of the knees are with stable ligaments and no pain to palpation.) - Neuro Neuro: Alert and oriented X 3, courtroom deputy or calendar clerk 2-12 intact, No motor deficit, No sensory deficit, Normal speech Eye Opening: Spontaneous Motor: Obeys Commands Verbal: Oriented GCS Score: 15 - Psych Psych: Normal mood, Normal affect Results - Vitals Vitals: Vital Signs - 24 hr 12/19/23 12/19/23 10:22 11:16 Temperature 36.9 C Heart Rate 85 Respiratory 16 Rate Blood Pressure 173/115 H O2 Saturation 100 Oxygen O2 Source Room air Procedures - Laceration (location) lower lip Length in cm: 2 Wound type: Stellate, Flap, Into subcut fat, Clean Neurovascular status: Sensory intact, Motor intact, Vascular intact Anesthesia: Lidocaine 1% Wound preparation: Hibiclens, Irrigated copiously NS, Wound explored, To the base Skin layer closure: Nylon, Interrupted, Size #-0 - enter number ([phone]) Other: Patient tolerated well, No complications, Neurovascular intact, Tetanus UTD PD Medical Decision Making - ED course Complexity details: reviewed results, re-evaluated patient, considered differential, d/w patient ED course: 73-year-old female with a ground-level fall lacerating her lower lip through the vermallgood border has a repair made to the lower lip. No other specific injuries were noted in this fall with the exception of abrasion to the knees. The patient is not on a blood thinner she tolerated the repair. Departure - Departure Disposition: 01 Home, Self Care Clinical Impression: Lip laceration Qualifiers: Encounter type: initial encounter Qualified Code(s): S01.511A - Laceration without foreign body of lip, initial encounter Knee abrasion Qualifiers: Encounter type: initial encounter Laterality: right Qualified Code(s): S80.211A - Abrasion, right knee, initial encounter Condition: Stable Instructions: ED Abrasion, ED Laceration Facial Sutr Tape, ED Laceration Mouth Follow-Up: Juvenal Godwin MD [Primary Care Provider] - Comments: Norma, today it looks like you have lacerated your lip we were able to repair this and you will need to have those sutures removed in 5 to 7 days. Forms: PCP List
[2023-12-19 11:58] VITALS: BP 155/88; O2SAT 99
== END 2023-12-19 11:56 | disposition home or self-care (01) ==
LOC: ED 10:11
DX: S01.511A Laceration without foreign body of lip, initial encounter (principal); S80.212A Abrasion, left knee, initial encounter; S80.211A Abrasion, right knee, initial encounter; W01.198A Fall on same level from slipping, tripping and stumbling with subsequent striking against other object, initial encounter; Y93.89 Activity, other specified; Y92.009 Unspecified place in unspecified non-institutional (private) residence as the place of occurrence of the external cause
CPT/HCPCS: 12011; 99283

== ENCOUNTER 2024-03-08 08:05 | Outpatient (CLI) | payer MEDICARE, OTHER ==
[2024-03-08 12:40] LABS: BASOPHILS % (AUTO) 1.2 %; EOSINOPHILS # (AUTO) 0.1 10^3/uL (0.0-0.7); EOSINOPHILS % (AUTO) 2.3 %; HCT - HEMATOCRIT 35.3 % (37.0-47.0); HGB - HEMOGLOBIN 11.7 g/dL (12.0-16.0); LYMPHOCYTES # (AUTO) 1.4 10^3/uL (1.5-3.5); LYMPHOCYTES % (AUTO) 39.6 %; MEAN CORPUSCULAR HEMOGLOBIN 34.3 pg (27.0-31.0); MEAN CORPUSCULAR HGB CONC 33.1 g/dL (32.0-36.0); MEAN CORPUSCULAR VOLUME 103.5 fL (81.0-99.0); MONOCYTES # (AUTO) 0.5 10^3/uL (0.0-1.0); NEUTROPHILS # (AUTO) 1.5 10^3/uL (1.5-6.6); NEUTROPHILS % (AUTO) 43.9 %; PLT - PLATELET COUNT 305 10^3/uL (130-450); RED BLOOD COUNT 3.41 10^6/uL (4.20-5.40); RED CELL DISTRIBUTION WIDTH 12.3 % (12.0-15.0); WHITE BLOOD COUNT 3.5 x10^3/uL (4.8-10.8)
[2024-03-08 12:58] LABS: ALBUMIN 4.4 g/dL (3.2-5.5); ALBUMIN/GLOBULIN RATIO 1.7 (1.0-2.2); ALKALINE PHOSPHATASE 63 IU/L (42-121); ALT ALANINE AMINOTRANSFERASE 9 IU/L (10-60); AST ASPARTATE AMINOTRANSFERASE 18 IU/L (10-42); BILIRUBIN,TOTAL 0.9 mg/dL (0.2-1.0); BUN - BLOOD UREA NITROGEN 11 mg/dL (6-20); CALCIUM 10.3 mg/dL (8.5-10.3); CARBON DIOXIDE - CO2 28 mmol/L (21-32); CHLORIDE 96 mmol/L (101-111); CHOL/HDL RATIO 2.1 (<4.4); CHOLESTEROL 210 mg/dL; CREATININE 0.6 mg/dL (0.6-1.3); GFR - MDRD 98 (>89); GLUCOSE 97 mg/dL (74-104); HDL CHOLESTEROL 98 mg/dL; LDL CHOLESTEROL,CALCULATED 97 mg/dL; POTASSIUM 4.5 mmol/L (3.5-4.5); SODIUM 130 mmol/L (135-145); TRIGLYCERIDES 75 mg/dL; VLDL CHOLESTEROL 15 mg/dL
== END 2024-03-08 08:06 | disposition home or self-care (01) ==
LOC: LAB.N 08:05
PROVIDERS: ATTEND Internal Medicine
DX: I10 Essential (primary) hypertension (principal); E78.5 Hyperlipidemia, unspecified; E55.9 Vitamin D deficiency, unspecified
CPT/HCPCS: 36415; 80053; 80061; 82306; 83721; 85025